=== PATIENT | male | born 1970 | race Caucasian/White ===

== ENCOUNTER 2018-02-01 17:08 | Emergency (ER) | payer OTHER ==
[2018-02-01] MEDS ORDERED: BUPIVACAINE 0.5%-EPI 1:200000 PF 30 ML VIAL SUBQ ONE (17:32)
--- NOTE | 2018-02-01 17:35 | ED Physician Documentation ---
History of Present Illness - Stated complaint Stated Complaint: L SIDE FACE PAIN - Chief complaint Chief Complaint: Heent - History obtained from History obtained from: Patient - History of Present Illness Timing: Other (For the last weeks he has had constant and sometimes severe sharp pain radiating around the left jaw to the ear and down to the throat. He saw his dentist who made of a mouthguard, he was getting better but got worse again over this last weekend. It is worse if he chews. He denies any fever, sore throat, or hearing difficulty. Despite that he trialed a round of amoxicillin without help.) Review of Systems Constitutional: denies: Fever, Chills Nose: denies: Rhinorrhea / runny nose, Congestion, Sinus pressure / pain Throat: denies: Sore throat Cardiac: denies: Chest pain / pressure, Palpitations PD PAST MEDICAL HISTORY - Present Medications Home Medications: Ambulatory Orders Medication Instructions Recorded Confirmed Atorvastatin [Lipitor] 20 mg 02/01/18 HYDROcod/ACETAM 5/325 [[place] 5/325] 1 - 2 ea PO Q6H PRN #15 tablet 02/01/18 Lisinopril 02/01/18 Meloxicam 02/01/18 Omeprazole [PriLOSEC] 02/01/18 metFORMIN [Glucophage] 02/01/18 - Allergies Allergies/Adverse Reactions: Allergies Allergy/AdvReac Type Severity Reaction Status Date / Time No Known Drug Allergies Allergy Verified 02/01/18 17:16 PD ED PE NORMAL - Vitals Vital signs reviewed: Yes - General General: Alert and oriented X 3, No acute distress - HEENT HEENT: Other (TMs and oropharynx are normal, he does have tenderness with palpation of the left TMJ.) - Neck Neck: Supple, no meningeal sign, No bony TTP - Respiratory Respiratory: No respiratory distress, Clear bilaterally - Neuro Neuro: Alert and oriented X 3, Normal speech - Psych Psych: Normal mood, Normal affect Results - Vitals Vitals: Vital Signs - 24 hr 02/01/18 17:10 Temperature 36.5 C Heart Rate 90 Respiratory 18 Rate Blood Pressure 145/85 H O2 Saturation 97 Oxygen O2 Source Room air Procedures - General procedure General procedure: An injection of the left TMJ was done after prep with 3 mL of 0.5% Marcaine with epinephrine. Departure - Departure Disposition: 01 Home, Self Care Clinical Impression: TMJ arthralgia Qualifiers: Laterality: left Qualified Code(s): M26.622 - Arthralgia of left temporomandibular joint Condition: Good Record reviewed to determine appropriate education?: Yes Instructions: ED TMJ Syndrome Prescriptions: HYDROcod/ACETAM 5/325 [[place] 5/325] 1 - 2 ea PO Q6H PRN #15 tablet PRN Reason: Pain Comments: You can follow-up with oral maxillofacial surgeon for specialty care of this issue. There is 1 in [place], Dr. Pascual Stone, his phone number is .
[2018-02-01] MEDS ORDERED: BUPIVACAINE 0.5%-EPI 1:200000 PF 10 ML VIAL SUBQ ONE (18:00)
[2018-02-01 18:14] VITALS: BP 139/93
== END 2018-02-01 18:09 | disposition home or self-care (01) ==
LOC: ED 17:08
DX: M26.622 Arthralgia of left temporomandibular joint (principal)
CPT/HCPCS: 20605; 99283

== ENCOUNTER 2018-07-04 07:49 | Emergency (ER) | payer OTHER ==
[2018-07-04] MEDS ORDERED: DEXAMETHASONE 10 MG/ML VIAL PO STA (08:06)
--- NOTE | 2018-07-04 08:18 | ED Physician Documentation ---
PD HPI HEENT - Stated complaint Stated Complaint: THROAT/L EAR PX/SWELLING - Chief complaint Chief Complaint: Heent - History obtained from History obtained from: Patient, Family - History of Present Illness Timing - onset: Last night Timing - duration: Hours Timing - details: Gradual onset, Still present Location: Left ear, Throat Improves: Medication Worsens: Swalllowing Associated symptoms: Congestion, Swollen nodes, Cough Similar symptoms before: Diagnosis (strep) Recently seen: Not recently seen - Additional information Additional information: 47 y/o male on lisinopril has swelling in his throat and a constriction causing a problem with his airway. He is able to breath but feels the swelling and is talking funny. He has had this previously Review of Systems Constitutional: reports: Fever, Fatigue Eyes: denies: Decreased vision Ears: reports: Ear pain Nose: reports: Congestion Throat: reports: Sore throat Cardiac: denies: Chest pain / pressure, Palpitations Respiratory: denies: Dyspnea, Cough GI: denies: Abdominal Pain, Nausea, Vomiting, Constipation, Diarrhea : denies: Dysuria, Frequency Skin: denies: Rash, Lesions Musculoskeletal: denies: Neck pain, Back pain, Extremity pain Neurologic: denies: Generalized weakness, Focal weakness, Numbness PD PAST MEDICAL HISTORY - Past Medical History Past Medical History: Yes Cardiovascular: Hypertension, High cholesterol Endocrine/Autoimmune: Type 2 diabetes GI: GERD - Past Surgical History Past Surgical History: No - Present Medications Home Medications: Ambulatory Orders Medication Instructions Recorded Confirmed Atorvastatin [Lipitor] 20 mg 02/01/18 HYDROcod/ACETAM 5/325 [[place] 5/325] 1 - 2 ea PO Q6H PRN #15 tablet 02/01/18 Lisinopril 02/01/18 Meloxicam 02/01/18 Omeprazole [PriLOSEC] 02/01/18 metFORMIN [Glucophage] 02/01/18 Azithromycin [Zithromax] 250 mg PO DAILY #6 tablet 07/04/18 - Allergies Allergies/Adverse Reactions: Allergies Allergy/AdvReac Type Severity Reaction Status Date / Time No Known Drug Allergies Allergy Verified 07/04/18 08:03 - Social History Does the pt smoke?: Yes Smoking Status: Current every day smoker Does the pt drink ETOH?: Yes Does the pt have substance abuse?: No - Immunizations Immunizations are current?: Yes PD ED PE NORMAL - Vitals Vital signs reviewed: Yes (hypertensive) - General General: Alert and oriented X 3, No acute distress, Well developed/nourished, Other - HEENT HEENT: Atraumatic, PERRL, EOMI, Other (inflamation in the right is more than the left and both are minimal. The pharynx has marked swelling of the tonsils and soft pallet with crypts and mild exudate. The tonsils are 3+ bilaterally and worse on the left. 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, No motor deficit, No sensory deficit, Normal speech Eye Opening: Spontaneous Motor: Obeys Commands Verbal: Oriented GCS Score: 15 - Psych Psych: Normal mood, Normal affect Results - Vitals Vitals: Vital Signs - 24 hr 07/04/18 07/04/18 07/04/18 08:00 08:33 10:06 Temperature 36.7 C Heart Rate 88 88 64 Respiratory 16 20 16 Rate Blood Pressure 129/98 H 137/95 H 140/84 H O2 Saturation 98 97 95 Oxygen O2 Source Room air - Labs Labs: Laboratory Tests 07/04/18 08:00 Group A Strep Rapid Negative PD MEDICAL DECISION MAKING - ED course Complexity details: reviewed old records, reviewed results, re-evaluated patient , considered differential, d/w patient, d/w family ED course: 47-year-old male who uses CPAP at night has developed swelling in the back of his throat and he is having some airway compromise associated with this. He has an extended uvula and enlarged cryptic tonsils with mild exudate. He is administered Dexamethasone 10 mg orally and Rocephin 1 g IM. I am concerned somewhat about the possibility of angioedema as the patient is on lisinopril and have asked him to stop this medication and to discuss alternative agents with his primary care doctor. He has been on the lisinopril for years has never had this issue previously. His rapid strep is negative and he responds to treatment with improvement in his swelling. - Sepsis Event Vital Signs: Vital Signs - 24 hr 07/04/18 07/04/18 07/04/18 08:00 08:33 10:06 Temperature 36.7 C Heart Rate 88 88 64 Respiratory 16 20 16 Rate Blood Pressure 129/98 H 137/95 H 140/84 H O2 Saturation 98 97 95 Oxygen O2 Source Room air Departure - Departure Disposition: 01 Home, Self Care Clinical Impression: Tonsillitis Angio-edema Qualifiers: Encounter type: initial encounter Qualified Code(s): T78.3XXA - Angioneurotic edema, initial encounter Condition: Stable Instructions: ED Angioedema, ED Tonsillitis Follow-Up: CHRIS TORIBIO PA-C [Primary Care Provider] - Prescriptions: Azithromycin [Zithromax] 250 mg PO DAILY #6 tablet Comments: Today I am concerned about the swelling in your throat being related to something we call angioedema and this could be a side effect of your lisinopril even if you have been on it for years. Discontinue your lisinopril and take Benadryl 25-50 mg every 6 hours for the next 2 days. Ask your doctor about an alternative agent for your blood pressure. If you have progression of swelling or do not have improvement further follow-up here in the emergency department.
[2018-07-04 10:07] VITALS: BP 140/84
[2018-07-04] MEDS ORDERED: LIDOCAINE 1% 2 ML VIAL SUBQ ONE (10:13)
[2018-07-04] MEDS ORDERED: cefTRIAXone 1 GM VIAL IM STA (10:13)
== END 2018-07-04 11:51 | disposition home or self-care (01) ==
LOC: ED 07:49
DX: T78.3XXA Angioneurotic edema, initial encounter (principal); I10 Essential (primary) hypertension; E78.00 Pure hypercholesterolemia, unspecified; E11.9 Type 2 diabetes mellitus without complications; Z79.84 Long term (current) use of oral hypoglycemic drugs; F17.200 Nicotine dependence, unspecified, uncomplicated
CPT/HCPCS: 87070; 87430; 96372; 99283

== ENCOUNTER 2021-04-26 08:37 | Emergency (ER) | payer OTHER ==
[2021-04-26 09:13] VITALS: BP 134/102
[2021-04-26] MEDS ORDERED: HYDROmorphone 1 MG/ML CARPUJECT IM STA (09:32)
--- NOTE | 2021-04-26 09:33 | ED Physician Documentation ---
PD HPI BACK PAIN - Stated complaint Stated Complaint: BACK PX - Chief complaint Chief Complaint: Back Pain - History obtained from History obtained from: Patient - Additional information Additional information: About a month worth of left low back pain and over the last week has had shooting shocklike pain to the anterior left thigh intermittently. Also numbness to the anterior left thigh not associated with saddle anesthesia, incontinence, fevers. No history of sciatica. Review of Systems Constitutional: denies: Fever, Chills Eyes: denies: Loss of vision, Decreased vision Ears: reports: Reviewed and negative Cardiac: reports: Reviewed and negative Respiratory: reports: Reviewed and negative PD PAST MEDICAL HISTORY - Past Medical History Cardiovascular: Hypertension, High cholesterol Endocrine/Autoimmune: Type 2 diabetes GI: GERD - Past Surgical History Past Surgical History: No - Present Medications Home Medications: Ambulatory Orders Medication Instructions Recorded Confirmed Atorvastatin [Lipitor] 20 mg 02/01/18 HYDROcod/ACETAM 5/325 [[place] 5/325] 1 - 2 ea PO Q6H PRN #15 tablet 02/01/18 Meloxicam 02/01/18 Omeprazole [PriLOSEC] 02/01/18 lisinopriL [Lisinopril] 02/01/18 metFORMIN [Glucophage] 02/01/18 Azithromycin [Zithromax] 250 mg PO DAILY #6 tablet 07/04/18 Oxycodone HCl/Acetaminophen 1 - 2 each PO Q6H PRN #20 tablet 04/26/21 [Percocet 5-325 mg Tablet] - Allergies Allergies/Adverse Reactions: Allergies Allergy/AdvReac Type Severity Reaction Status Date / Time No Known Drug Allergies Allergy Verified 07/04/18 08:03 - Social History Does the pt smoke?: Yes Smoking Status: Current every day smoker Does the pt drink ETOH?: Yes Does the pt have substance abuse?: No - Immunizations Immunizations are current?: Yes PD ED PE NORMAL - Vitals Vital signs reviewed: Yes - General General: Alert and oriented X 3, No acute distress - HEENT HEENT: PERRL, EOMI - Neck Neck: Supple, no meningeal sign, No bony TTP - Back Back: No spinal TTP, Other (Diminished sensation in the left L2-L3 distribution. No midline spinal tenderness. Lower extremity reflexes are symmetric. Tenderness at the left sciatic notch.) - Extremities Extremities: No edema, No calf tenderness / cord - Neuro Neuro: Alert and oriented X 3, Normal speech Results - Vitals Vitals: Vital Signs - 24 hr 04/26/21 09:08 Temperature 36.4 C L Heart Rate 82 Respiratory 18 Rate Blood Pressure 134/102 H O2 Saturation 97 Oxygen O2 Source Room air PD MEDICAL DECISION MAKING - ED course ED course: I am prescribing a short course of short-acting opioid pain medication for this patient. I have reviewed the patients [employer]YSTYR[employer] and no concerning findings were noted. I have discussed that the opioids are for short term therapy only, and will not be refilled from the ED. This patient has seemingly uncomplicated musculoskeletal back pain. The patient has no "red flags." Specifically denies IV drug use, fevers, incontinence, saddle anesthesia. Spinal epidural abscess was considered, given that the patient has no fever, is not diabetic, has no spinal tenderness, does not use IV drugs, and has no bilateral neurologic symptoms, the diagnosis of spinal epidural abscess is considered exceedingly unlikely. Departure - Departure Disposition: Home, Self Care Clinical Impression: Sciatica Qualifiers: Laterality: left Qualified Code(s): M54.32 - Sciatica, left side Condition: Good Record reviewed to determine appropriate education?: Yes Instructions: ED Sciatica Prescriptions: Oxycodone HCl/Acetaminophen [Percocet 5-325 mg Tablet] 1 - 2 each PO Q6H PRN #20 tablet PRN Reason: pain Comments: Follow-up with your doctor on Thursday as scheduled. Return for new or worsening symptoms. Consider physical therapy when you consult with your doctor. Prescription was sent electronically to [facility] in [place]. I am prescribing a short course of narcotic pain medication for you. These are potentially dangerous and addictive medications that should be used carefully. These medications may constipate you. Take an [id number] stool softener (docusate) twice daily with plenty of water while taking these medications. If you go 24 hours without a bowel movement, take [id number] miralax, per package instructions. Do not drink or drive while taking these medications. If you received narcotic or sedating medications while in the emergency department, do not drive for 24 hours. Store this medication in a safe, secure place and out of reach of children. It is a violation of federal law to give or sell this medication to another person or to use in a manner other than prescribed. The ED will not refill narcotic prescriptions, including prescriptions lost or stolen. To dispose of unwanted medications: 1. [facility] at [address] in [place] has a medication drop box. They accept prescription medications (in pill form) Thursday through Thursday 9:00 a.m. to 5:00 p.m. 2. [facility] [employer] [facility] accepts prescription medications (in pill form only) for disposal year round. Call for more information. 3. Contact the [facility] for the next [facility] sponsored prescription drug collection event. , [phone], or [phone]; Note that many narcotic pain relievers also contain Tylenol/acetaminophen. Please ensure that your total dose of acetaminophen from all sources does not exceed 3 g (3000 mg) per day. Discharge Date/Time: 04/26/21 10:12
--- OUTSIDE RECORDS SUMMARY | 2021-04-26 09:37 | EXTERNAL MEDICAL SUMMARY RPT | Continuity of Care Document ---
:1970 Demographics Phone Unavailable Preferred Language Unknown Marital Status Unknown Church Affiliation Unknown Race Unknown Ethnic Group Unknown Author Organization [facility] Address [address] [place] [address] Phone Allergies Encounters Medications Problems Results
== END 2021-04-26 10:12 | disposition home or self-care (01) ==
LOC: ED 08:37
DX: M54.42 Lumbago with sciatica, left side (principal); I10 Essential (primary) hypertension; E11.9 Type 2 diabetes mellitus without complications; Z79.84 Long term (current) use of oral hypoglycemic drugs; F17.200 Nicotine dependence, unspecified, uncomplicated
CPT/HCPCS: 96372; 99283; 99284; J1170